=== PATIENT | female | born 1935 | race Caucasian/White ===

== ENCOUNTER → 2019-08-03 | Outpatient (CLI) | payer MEDICARE ==
[~2019-08-03] MED LIST: AMLO5TAB6 PO; ASPI81TA26 PO; METO50TA7 PO
[2019-08-03 10:00] LABS: HEMATOCRIT 43.7 % (36.0-47.0); HEMOGLOBIN 13.8 g/dl (12.0-15.5); MEAN CORPUSCULAR HEMOGLOBIN 28.5 pg (27.0-33.0); MEAN CORPUSCULAR HGB CONC 31.6 g/dl (32.0-36.5); MEAN CORPUSCULAR VOLUME 90.3 fl (80.0-96.0); PLATELET COUNT, AUTOMATED 216 10^3/uL (150-450); RED BLOOD COUNT 4.84 10^6/uL (4.00-5.40); WHITE BLOOD COUNT 7.1 10^3/uL (4.0-10.0)
[2019-08-03 10:19] LABS: INR 1.12; PROTHROMBIN TIME 14.1 SECONDS (11.8-14.0)
[2019-08-03 10:23] LABS: ERYTHROCYTE SEDIMENTATION RATE 17 mm/hr (0-30)
[2019-08-03 10:27] LABS: ALBUMIN 3.6 GM/DL (3.2-5.2); ALT/SGPT 19 U/L (12-78); BILIRUBIN,TOTAL 0.5 MG/DL (0.2-1.0); BLOOD UREA NITROGEN 18 MG/DL (7-18); CALCIUM LEVEL 8.9 MG/DL (8.8-10.2); CARBON DIOXIDE LEVEL 30 MEQ/L (21-32); CHLORIDE LEVEL 107 MEQ/L (98-107); CREATININE FOR GFR 0.86 MG/DL (0.55-1.30); GLOMERULAR FILTRATION RATE > 60.0 (>32); GLUCOSE, FASTING 88 MG/DL (70-100); POTASSIUM SERUM 4.5 MEQ/L (3.5-5.1); SODIUM LEVEL 141 MEQ/L (136-145); TOTAL PROTEIN 6.9 GM/DL (6.4-8.2)
--- NOTE | 2019-08-03 10:37 | REP ---
Two-view chest: 08/03/2019. Indication: Preoperative assessment. Comparison: None. Findings: Mild hyperinflation of the lungs is present. Lungs are clear. There is no pleural effusion or pneumothorax. Cardiac silhouette is normal. Degenerative sequelae of the thoracic spine are present. Impression: No acute cardiopulmonary process. Electronically Signed by Kam Howell DO 08/03/2019 10:28 A
--- NOTE | 2019-08-03 11:02 | ECGEPIP ---
[facility] Test Date: 2019-08-03 Pat Name: LEONEL AVERY Department: Room: - Gender: Female Pulmonary Specialist: MICHAEL : 1935 Requested By: Theodora Jc Order Number: [id number] Reading MD: Soni London Measurements Intervals [place] Rate: 53 P: 57 LA: 198 QRS: -21 QRSD: 82 T: 52 QT: 428 QTc: 405 Interpretive Statements SINUS BRADYCARDIA LEFT AXIS DEVIATION ST T-WAVE ABNORMALITY V 2,3,4 NO PRIOR Electronically Signed on 08-03-2019 11:02:35 EDT by Soni London
== END ==
LOC: M LAB 09:29
PROVIDERS: ATTEND Orthopaedic Surgery
DX: Z01.818 Encounter for other preprocedural examination (principal); Z79.82 Long term (current) use of aspirin